=== PATIENT | female | born 1980 | race Caucasian/White ===

== ENCOUNTER 2020-02-03 09:50 | Outpatient (REF) | payer MEDICAID, SELFPAY ==
[2020-02-08 09:56] LABS: HPV mRNA E6/E7 Not Detected (Not Detected)
== END 2020-02-03 09:51 | disposition home or self-care (01) ==
LOC: HO.LAB 09:50
PROVIDERS: Visit Provider Advanced Practice Midwife
DX: Z01.419 Encounter for gynecological examination (general) (routine) without abnormal findings (principal); Z87.42 Personal history of other diseases of the female genital tract
CPT/HCPCS: 87624; 87625; 88142

== ENCOUNTER 2020-02-19 08:40 | Outpatient (REF) | payer MEDICAID, SELFPAY ==
--- NOTE | 2020-02-19 08:43 | MM_ITS ---
EXAMINATION: MM SCREENING DIGITAL BREAST TOMOSYNTHESIS, BILATERAL CLINICAL INFORMATION: Screening. Asymptomatic. The lifetime risk of breast cancer based on the Tyrer-Cuzick Model is 8.7%. COMPARISON: Mammography: None TECHNIQUE: Digital breast tomosynthesis is performed in both the craniocaudal and mediolateral oblique views along with computer-aided detection (CAD). Synthesized 2D images are generated from the tomosynthesis. FINDINGS: The breasts are heterogeneously dense, which may obscure small masses (ACR BI-RADS breast composition Category c). There are no significant masses, abnormal calcifications, or other abnormalities. MM/MM tomosynthesis screening BI IMPRESSION: No mammographic evidence to suggest malignancy. ASSESSMENT: BI-RADS 1: Negative RECOMMENDATION: Routine annual mammography screening. This patient's information was entered into a reminder system with a target due date for their next mammogram.
== END 2020-02-19 08:41 | disposition home or self-care (01) ==
LOC: HO.MAMMO 08:40
PROVIDERS: PCP Internal Medicine; Visit Provider Advanced Practice Midwife
DX: Z12.31 Encounter for screening mammogram for malignant neoplasm of breast (principal)
CPT/HCPCS: 77063; 77067

== ENCOUNTER 2020-11-23 13:54 | Outpatient (REF) | payer MEDICAID, SELFPAY ==
--- NOTE | ~2020-11-23 | US_ITS ---
EXAMINATION: US SCREENING ULTRASOUND BREAST, BILATERAL CLINICAL INFORMATION: Dense breasts on mammography. Screening ultrasound. Tyrer-Cuzick Score 9%. COMPARISON: Baseline digital breast tomosynthesis 02/19/2020 TECHNIQUE: Ultrasound is performed using grayscale imaging and color Doppler. Imaging is performed to include the four quadrants and retroareolar region. Both breasts are imaged. FINDINGS: Right breast: There is no suspicious finding by ultrasound. There is no cystic or solid mass or focal architectural abnormality. Left breast: There is no suspicious finding by ultrasound. There is no cystic or solid mass or focal architectural abnormality. US/US breast RT complete IMPRESSION: Normal study. ASSESSMENT: BI-RADS 1: Negative RECOMMENDATION: Routine annual mammography screening. This patient's information was entered into a reminder system with a target due date for their next mammogram.
--- NOTE | ~2020-11-23 | US_ITS ---
EXAMINATION: US SCREENING ULTRASOUND BREAST, BILATERAL CLINICAL INFORMATION: Dense breasts on mammography. Screening ultrasound. Tyrer-Cuzick Score 9%. COMPARISON: Baseline digital breast tomosynthesis 02/19/2020 TECHNIQUE: Ultrasound is performed using grayscale imaging and color Doppler. Imaging is performed to include the four quadrants and retroareolar region. Both breasts are imaged. FINDINGS: Right breast: There is no suspicious finding by ultrasound. There is no cystic or solid mass or focal architectural abnormality. Left breast: There is no suspicious finding by ultrasound. There is no cystic or solid mass or focal architectural abnormality. US/US breast LT complete IMPRESSION: Normal study. ASSESSMENT: BI-RADS 1: Negative RECOMMENDATION: Routine annual mammography screening. This patient's information was entered into a reminder system with a target due date for their next mammogram.
== END 2020-11-23 13:55 | disposition home or self-care (01) ==
LOC: HO.MAMMO 13:54
PROVIDERS: Visit Provider Internal Medicine
DX: R92.2 Inconclusive mammogram (principal)
CPT/HCPCS: 76641

== ENCOUNTER → 2021-03-07 10:24 | Outpatient (BNVA) | payer MEDICAID, SELFPAY | PROVIDERS: Visit Provider Advanced Practice Midwife ==

== ENCOUNTER 2021-04-10 14:47 | Outpatient (REF) | payer MEDICAID, SELFPAY ==
--- NOTE | ~2021-04-10 | US_ITS ---
EXAMINATION: US PELVIS CLINICAL INFORMATION: Excessive premenopausal bleeding COMPARISON: None TECHNIQUE: Ultrasound of the pelvis is performed using both transabdominal and transvaginal transducers along with Doppler. Transvaginal imaging is performed due to inadequate visualization transabdominally. FINDINGS: Uterus: The uterus is retroverted and measures 9.1 x 6.8 x 7.3 cm. The double wall endometrial thickness is 18 mm. The uterus is smooth in contour and has normal myometrial echogenicity. There is a 5.0 x 4.5 x 5.0 cm anterior fibroid. Adnexa: Both ovaries are visualized. There is normal color flow to the adnexa. There is no ovarian torsion. There is no pelvic ascites or fluid collection. Right ovary measures 3.1 x 2.1 x 2.2 cm. Left ovary measures 3.2 x 1.9 x 2.6 cm. US/US pelvic and transvaginal IMPRESSION: 5.0 cm anterior fibroid. Otherwise unremarkable pelvic ultrasound.
== END 2021-04-10 14:48 | disposition home or self-care (01) ==
LOC: HO.US 14:47
PROVIDERS: PCP Internal Medicine; Visit Provider Advanced Practice Midwife
DX: N92.4 Excessive bleeding in the premenopausal period (principal); D64.9 Anemia, unspecified
CPT/HCPCS: 76830; 76856

== ENCOUNTER → 2021-04-19 15:18 | Outpatient (BNVA) | payer MEDICAID, SELFPAY | PROVIDERS: Visit Provider Advanced Practice Midwife ==

== ENCOUNTER → 2021-04-24 14:35 | Outpatient (BNVA) | payer MEDICAID, SELFPAY | PROVIDERS: Visit Provider Obstetrics & Gynecology ==

== ENCOUNTER 2021-05-01 09:46 | Outpatient (REF) | payer MEDICAID, SELFPAY ==
[2021-05-01 10:16] LABS: Hematocrit 39.5 % (37.0-47.0); Mean Corpuscular HGB Conc 32.9 g/dl (31.0-35.0); Mean Corpuscular Hemoglobin 30.4 pg (27.0-33.0); Mean Corpuscular Volume 92.3 fL (80.0-98.0); Mean Platelet Volume 10.2 fL (9.4-12.3); Platelet Count 235 X10*3/uL (160-400); Red Blood Count 4.28 X10*6/uL (4.20-5.50); Red Cell Distribution Width 12.8 % (11.0-16.0); White Blood Count 5.2 X10*3/uL (4.8-10.8)
[2021-05-01 11:01] LABS: HCG Quantitative < 2 mIU/mL; TSH reflex Free T4 1.53 uIU/mL (0.32-4.0)
== END 2021-05-01 09:47 | disposition home or self-care (01) ==
LOC: HO.LAB 09:46
PROVIDERS: PCP Internal Medicine; Visit Provider Obstetrics & Gynecology
DX: N93.9 Abnormal uterine and vaginal bleeding, unspecified (principal)
CPT/HCPCS: 36415; 84443; 84702; 85027

== ENCOUNTER 2021-05-10 08:39 | Outpatient (REF) | payer MEDICAID, SELFPAY ==
[2021-05-10 16:14] LABS: CT PCR NOT DETECTED (Not Detect.); NG PCR NOT DETECTED (Not Detect.)
== END 2021-05-10 08:40 | disposition home or self-care (01) ==
LOC: HO.LAB 08:39
PROVIDERS: PCP Internal Medicine; Visit Provider Obstetrics & Gynecology
DX: Z01.419 Encounter for gynecological examination (general) (routine) without abnormal findings (principal); N93.9 Abnormal uterine and vaginal bleeding, unspecified; D21.9 Benign neoplasm of connective and other soft tissue, unspecified
CPT/HCPCS: 58100; 87491; 87591; 88305; 99212

== ENCOUNTER → 2021-05-24 11:48 | Outpatient (BNVA) | payer MEDICAID, SELFPAY | PROVIDERS: Visit Provider Obstetrics & Gynecology ==

== ENCOUNTER 2021-06-09 09:14 | Outpatient (REF) | payer MEDICAID, SELFPAY ==
--- NOTE | ~2021-06-09 | MM_ITS ---
EXAMINATION: MM SCREENING DIGITAL BREAST TOMOSYNTHESIS, BILATERAL CLINICAL INFORMATION: Screening. Asymptomatic. The lifetime risk of breast cancer based on the Tyrer-Cuzick Model is 9%. COMPARISON: Mammography: 02/19/2020 (baseline). TECHNIQUE: Digital breast tomosynthesis is performed in both the craniocaudal and mediolateral oblique views along with computer-aided detection (CAD). Synthesized 2D images are generated from the tomosynthesis. Additional left CC view is provided. FINDINGS: The breasts are heterogeneously dense, which may obscure small masses (ACR BI-RADS breast composition Category c). There are no significant masses, abnormal calcifications, or other abnormalities. Parenchymal pattern is similar to prior baseline exam. There are no significant changes. MM/MM tomosynthesis screening BI IMPRESSION: No mammographic evidence of malignancy. ASSESSMENT: BI-RADS 1: Negative RECOMMENDATION: Routine annual mammography screening. This patient's information was entered into a reminder system with a target due date for their next mammogram.
== END 2021-06-09 09:15 | disposition home or self-care (01) ==
LOC: HO.MAMMO 09:14
PROVIDERS: PCP Internal Medicine; Visit Provider Obstetrics & Gynecology
DX: Z12.31 Encounter for screening mammogram for malignant neoplasm of breast (principal)
CPT/HCPCS: 77063; 77067

== ENCOUNTER → 2021-06-26 08:53 | Outpatient (BNVA) | payer MEDICAID, SELFPAY | PROVIDERS: PCP Internal Medicine; Visit Provider Obstetrics & Gynecology | DX: N93.9 Abnormal uterine and vaginal bleeding, unspecified (principal) | CPT/HCPCS: 58300 ==

== ENCOUNTER → 2021-07-27 08:53 | Outpatient (BNVA) | payer MEDICAID, SELFPAY | PROVIDERS: Visit Provider Obstetrics & Gynecology | DX: Z30.431 Encounter for routine checking of intrauterine contraceptive device (principal) | CPT/HCPCS: 81025; 99212 ==

== ENCOUNTER 2021-11-27 10:44 | Outpatient (REF) | payer MEDICAID, SELFPAY ==
--- NOTE | ~2021-11-27 | US_ITS ---
EXAMINATION: US PELVIS CLINICAL INFORMATION: Abnormal uterine and vaginal bleeding. COMPARISON: Pelvic ultrasound from 04/10/2021. TECHNIQUE: Ultrasound of the pelvis is performed using both transabdominal and transvaginal transducers along with Doppler. Transvaginal imaging is performed due to inadequate visualization transabdominally. FINDINGS: UTERUS AND CERVIX The anteflexed, anteverted uterus measures approximately 9.5 x 5.2 x 7 cm (gumcty-lg-pydxgv x AP x transverse dimension). The endometrium has normal echotexture, measures up to 0.7 cm AP. There is distal shadowing produced by the contraceptive device which is well centered in the endometrium. No endometrial fluid. There are nabothian cysts of the cervix. A heterogeneous focus that measures up to approximately 5 cm maximum dimension at the uterine fundus is consistent with leiomyoma and is not appreciably changed compared to 04/10/2021. There is no visible submucosal extension of the leiomyoma. ADNEXA: The right ovary is 3.5 x 1.5 x 1.9 cm and left ovary 5.3 x 3.4 x 4.6 cm. The left ovary is enlarged due to presence of a 3.5 cm simple cyst. This is almost certainly benign. No follow-up imaging is recommended, if asymptomatic. Color Doppler images with spectral waveforms show presence of normal arterial and venous flow within each ovary. FREE FLUID: None detected. US/US pelvic and transvaginal IMPRESSION: * The fundal leiomyoma remains similar in appearance compared to 04/10/2021. * The contraceptive device is well centered within the endometrium. * 3.5 cm simple cyst of the left ovary. Otherwise, the adnexa are unremarkable.
== END 2021-11-27 10:45 | disposition home or self-care (01) ==
LOC: HO.US 10:44
PROVIDERS: Visit Provider Obstetrics & Gynecology
DX: N93.9 Abnormal uterine and vaginal bleeding, unspecified (principal); D21.9 Benign neoplasm of connective and other soft tissue, unspecified
CPT/HCPCS: 76830; 76856

== ENCOUNTER → 2021-12-04 10:25 | Outpatient (BNVA) | payer MEDICAID, SELFPAY | PROVIDERS: PCP Internal Medicine; Visit Provider Obstetrics & Gynecology | DX: D21.9 Benign neoplasm of connective and other soft tissue, unspecified (principal); N93.9 Abnormal uterine and vaginal bleeding, unspecified | CPT/HCPCS: 99212 ==

== ENCOUNTER → 2022-05-02 08:50 | Outpatient (BNVA) | payer MEDICAID, SELFPAY | PROVIDERS: PCP Internal Medicine; Visit Provider Obstetrics & Gynecology | DX: N63.22 Unspecified lump in the left breast, upper inner quadrant (principal) | CPT/HCPCS: 99212 ==

== ENCOUNTER 2022-05-14 13:48 | Outpatient (REF) | payer MEDICAID, SELFPAY ==
--- NOTE | ~2022-05-14 | MM_ITS ---
EXAMINATION: MM DIAGNOSTIC DIGITAL BREAST TOMOSYNTHESIS, BILATERAL US DIAGNOSTIC ULTRASOUND BREAST, LEFT CLINICAL INFORMATION: Palpable nodule upper periareolar left breast 10:00-11:00 for approximately 6 months. Due for yearly. No known family history breast cancer. TC score 8%. COMPARISON: Mammography: 06/09/2021, 02/19/2020 (baseline), bilateral ultrasound 11/23/2020. TECHNIQUE: Digital breast tomosynthesis is performed in both the craniocaudal and mediolateral oblique views along with computer-aided detection (CAD). Synthesized 2D images are generated from the tomosynthesis. Ultrasound left breast is targeted to the area of clinical concern. Patient is able to point to the area at time of imaging. Grayscale imaging and color Doppler are performed without and with harmonics. FINDINGS: The breasts are heterogeneously dense, which may obscure small masses (ACR BI-RADS breast composition Category c). There are no significant masses, abnormal calcifications, or other abnormalities. Parenchymal pattern is similar to prior studies. There is no developing density or architectural abnormality. The axilla and skin contours are unremarkable. No significant changes. Ultrasound demonstrates a simple cyst at site of clinical concern 5 mm in size with circumscribed margins, anechoic lumen, and increased through-transmission of sound. This resides approximately 10:00-11:00 periareolar region. There is no solid mass or architectural abnormality or focal duct ectasia. Results are discussed with the patient at time of visit. MM/MM tomosynthesis diagnostic BI IMPRESSION: 1. No mammographic evidence of malignancy. 2. Simple cyst periareolar left breast at site of clinical concern 5 mm. ASSESSMENT: BI-RADS 2: Benign RECOMMENDATION: Routine annual mammography screening. This patient's information was entered into a reminder system with a target due date for their next mammogram.
== END 2022-05-14 13:49 | disposition home or self-care (01) ==
LOC: HO.MAMMO 13:48
PROVIDERS: Visit Provider Obstetrics & Gynecology
DX: N63.22 Unspecified lump in the left breast, upper inner quadrant (principal)
CPT/HCPCS: 76642; 77062; 77066

== ENCOUNTER 2022-05-16 09:29 | Outpatient (REF) | payer MEDICAID, SELFPAY ==
[2022-05-22 10:08] LABS: HPV 16 RNA NOT DETECTED (NOT DETECTED); HPV mRNA E6/E7 rflx Detected (Not Detected)
== END 2022-05-16 09:30 | disposition home or self-care (01) ==
LOC: HO.LNP 09:29
PROVIDERS: Visit Provider Obstetrics & Gynecology
DX: Z01.419 Encounter for gynecological examination (general) (routine) without abnormal findings (principal); N60.09 Solitary cyst of unspecified breast
CPT/HCPCS: 87624; 87625; 88142

== ENCOUNTER 2022-06-26 09:01 | Outpatient (REF) | payer MEDICAID, SELFPAY | END 2022-06-26 09:02 | disposition home or self-care (01) | LOC: HO.LNP 09:01 | PROVIDERS: Visit Provider Obstetrics & Gynecology | DX: R87.810 Cervical high risk human papillomavirus (HPV) DNA test positive (principal); R87.610 Atypical squamous cells of undetermined significance on cytologic smear of cervix (ASC-US) | CPT/HCPCS: 57454; 88300; 88305; 88342; 88360 ==

== ENCOUNTER → 2022-07-04 08:04 | Outpatient (BNVA) | payer MEDICAID, SELFPAY | PROVIDERS: Visit Provider Obstetrics & Gynecology | DX: N87.1 Moderate cervical dysplasia (principal) | CPT/HCPCS: 99212 ==

== ENCOUNTER 2022-07-06 10:59 | Day surgery (SDC) | payer MEDICAID, SELFPAY ==
[2022-07-06] VITALS (7 sets, daily range): BP systolic 121–147; BP diastolic 68–98; PULSE 69–85; RESP 16–20; TEMP 36.6–36.7; O2SAT 99–100; BMI 24.5; BMI 24.3
[2022-07-06 11:31] LABS: UPreg QC Valid YES; Urine Pregnancy NEGATIVE (NEGATIVE)
[2022-07-06] MEDS: Lactated Ringers 1,000 ML 50 ML IVCONT (12:01)
--- NOTE | 2022-07-06 12:23 | MHC.SHP ---
Pre-Procedural Eval Section A Date of Service: 07/06/22 The patient is an INPATIENT: No Changes since office visit: No Cold of Flu in the past 2 weeks, No New Medical Problems, No Changes in Medication and No Patient answered all questions The History & Physical has been completed within 30 days and I have reviewed it.: Yes Section B Chief Complaint: Moderate cervical dysplasia Allergies: Allergies Allergy/AdvReac Type Severity Reaction Status Date / Time No Known Allergies Allergy Verified 07/06/22 11:47 Plan Diagnosis/Plan: Unchanged I have reviewed the history and physical and performed a pertinent physical examination on my patient. No changes have occurred unless specified. Time Spent With Patient Time: Total time managing care of this patient today ____ minutes.
--- NOTE | 2022-07-06 12:27 | HO.ANESPROP2 ---
[facility] Active Problems Active Problems: All Active Problems (Updated 07/06/22 @ 11:45 by Elyssa Graf, RN) Well woman exam with routine gynecological exam (Acute) History of abnormal cervical Pap smear (Acute) Menorrhagia, premenopausal (Acute) Fibroid uterus (Acute) Abnormal uterine bleeding (Acute) Myoma (Acute) Well woman exam (Acute) IUD check up (Acute) Breast lump (Acute) Breast cyst (Acute) ASCUS with positive high risk HPV cervical (Acute) ELMA II (cervical intraepithelial neoplasia II) (Acute) Anemia (Acute) Past Medical History Medical History (Updated 07/06/22 @ 11:45 by Elyssa Graf, RN) Anemia ASCUS (atypical squamous cells of undetermined significance) on gynecologic Papanicolaou smear complicating , antepartum Elevated cholesterol Lower back pain Family History Family History Mother Liver cancer Lung cancer HTN (hypertension) Paternal Grandfather Stomach cancer Family history of problems with anesthesia: No Surgical History Surgical History H/O LEEP Hx of nasal polypectomy History of Problems with Anesthesia: No Social History Social History Household Members: Spouse Housing: House Alcohol intake: current Alcohol intake frequency: holidays/special occasions only Patient Tobacco Use Status: Never used Tobacco Use of substances other than those prescribed or required for medical reasons: No Substance Use Type: Marijuana Are you DNR?: No Advance Directives: No Advance Directives Information Provided: Yes service: No Current occupational status: unemployed Sexual orientation: Straight/Heterosexual Gender identity: Female Meds Allergies Allergy/AdvReac Type Severity Reaction Status Date / Time No Known Allergies Allergy Verified 07/06/22 11:47 Active Medications: Current Medications Lactated Ringer's (Lr) 1,000 mls @ 50 mls/hr IVCONT .Q20H ZACARIAS Last Admin: 07/06/22 12:01 Dose: 50 mls/hr Home Medications Medication Instructions Recorded Confirmed Last Taken Type fluticasone propionate 50 1 spray intranasal DAILY 02/03/20 07/06/22 06/29/22 History mcg/actuation nasal spray,suspension (Allergy Relief (fluticasone)) multivitamin (Daily Multi-Vitamin 1 tab PO DAILY 03/07/21 07/06/22 07/03/22 History tablet) rosuvastatin 5 mg tablet 5 mg PO DAILY 03/07/21 07/06/22 07/05/22 20:00 History levonorgestrel 21 mcg/24 hours (8 1 device intrauterine ONCE 07/27/21 07/06/22 Unknown History yrs) 52 mg intrauterine device (Mirena) albuterol sulfate 90 mcg/actuation 2 puff inhalation Q4-6H PRN 07/06/22 07/06/22 Unknown History aerosol inhaler Allergy Symptoms Exam Exam Date and Time: July 06, 2022 1227 Height,Weight and Vital Signs: Height 5 ft 6 in Weight 68.492 kg Last Vital Signs Temp 97.9 F 07/06/22 11:48 Pulse 69 07/06/22 11:48 Resp 16 07/06/22 11:48 BP 147/98 H 07/06/22 11:48 Pulse Ox 100 07/06/22 11:48 O2 Del Method Room Air 07/06/22 11:48 Pertinent Lab Results Pertinent Lab Results: Laboratory Tests 07/06/22 11:20 Urine Test NEGATIVE Airway Mallampati Class: II TM Dist: >3cm Neck ROM: Full Assessment and Plan Assessment Anesthesia Assessment: Anesthesia Plan Discussed and Chart Reviewed Final Anesthetic Review Family History of Problems with Anesthesia: No History of Problems with Anesthesia: No NPO: Yes ASA Class: II Final Preanesthetic Review: No Changes in Pt Med Stat, Meds/Allgs Chart Reviewed, Consent Obtained/Reviewed and Anes Risks/Benef Reviewed Patient Risk: Low Procedure Risk: Low Anesthetic Plan Anesthetic Plan: GA Disposition: Standard PACU
--- NOTE | 2022-07-06 13:09 | P.BOP_ITS ---
Brief Operative Note Date of Service: 07/06/22 Pre-op diagnosis: ELMA 2 Post-op diagnosis: same Procedure: LEEP CONE with post CONE ECC IUD removal and Mirena IUD reinsertion Surgeon: Ben Andujar MD Anesthesia: GLMA and other (Paracervical block) Was an Manager New Product used for this Procedure?: No Estimated blood loss (mL): 0 Pathology: other (Cervical cone, top-hat, Post cone ECC) Condition: stable Disposition: other (Home)
--- NOTE | 2022-07-06 13:10 | W.PM.OPN ---
Operative Note Operative Note Date of Service: 07/06/22 Narrative: Pre op diagnosis: ELMA II Operation: Colposcopy, Loop electrical excision procedure cone, top hat endocervical excision, post cone ECC, IUD removal and Mirena IUD insertion Postop diagnosis: the same Quantitative blood loss: 50 cc Surgeon: Ben Andujar MD, FACOG [employer] Machine Operator: None Pathology: Cervical cone, top-hat endo cervical excision, endo cervical curettage Complications: none Anesthesia: GLMA and Para cervical block Procedure: The patient was put in a dorsal lithotomy position, scrubbed and draped in the usual sterile fashion. A speculum was inserted inside the patient's vagina. Using a long Saed clamp IUD was removed without any complications. The cervix is assessed using the colposcope with acetic acid , the lesions were seen, and at least 1 cm of the squamocolumnar junction was observed. 20 x 5 mm size loop was selected based upon the diameter of the lesion. Lugol solution was used to outline the lesions and area of the transformation zone order to be removed 10 cc of xylocaine with epinephrine were injected submucosally into the surface of the cervix (ectocervix) at the 3, 6, 9, and 12 o'clock positions. The electrosurgical generator is set at 40 martin on blend 1. The loop is carefully passed simultaneously around and under the transformation zone, in order to ensure excising it making sure the lesion is at least 5 mm far from the specimen margins . The loop was allowed to glide through the cervix from one side to the other, allowing the cutting current to divide the tissue. Additional tissue was excised from this area with a smaller-diameter loop , endo cervical top-hat excision was performed An endo cervical curettage is performed following completion of excision, and hemostasis is obtained with a Ball electrode or regular tip cautery. At the end, Monsel's solution was applied to the cone bed. A sound was then advanced through the external and internal os until it reached the fundus of the uterus, the depth was 8 cm. The sound was then withdrawn. The IUD was loaded in a sterile manner and advanced into position. The string was visualized and cut to 3 cm. Tenaculum site hemostatic. All instruments removed from vagina. Patient tolerated the procedure well. NO complications were noted. Monsel's solution was used bed of the loop. The patient tolerated to procedure and was transferred to the PACU in stable condition
== END 2022-07-06 14:20 | disposition home or self-care (01) ==
PROVIDERS: PCP Registered Nurse; Visit Provider Obstetrics & Gynecology
PROC: 0UBC7ZZ Excision of Cervix, Via Natural or Artificial Opening (ICD-10-PCS; CPT 57522; principal; 2022-07-06 13:30)
DX: N87.1 Moderate cervical dysplasia (principal); N72 Inflammatory disease of cervix uteri; Z30.433 Encounter for removal and reinsertion of intrauterine contraceptive device; D64.9 Anemia, unspecified; F12.90 Cannabis use, unspecified, uncomplicated; Z79.899 Other long term (current) drug therapy
CPT/HCPCS: 57461; 58300; 81025; 88305; 88307; J1100; J1885; J2250; J2405; J3010

== ENCOUNTER → 2022-07-31 08:12 | Outpatient (BNVA) | payer MEDICAID, SELFPAY | PROVIDERS: PCP Registered Nurse; Visit Provider Obstetrics & Gynecology | DX: Z30.431 Encounter for routine checking of intrauterine contraceptive device (principal); N87.1 Moderate cervical dysplasia | CPT/HCPCS: 81025; 99212 ==

== ENCOUNTER 2023-03-19 07:55 | Outpatient (REF) | payer MEDICAID, SELFPAY ==
[2023-03-23 04:33] LABS: HPV mRNA E6/E7 rflx Not Detected (Not Detected)
== END 2023-03-19 07:56 | disposition home or self-care (01) ==
LOC: HO.LNP 07:55
PROVIDERS: PCP Registered Nurse; Visit Provider Obstetrics & Gynecology
DX: Z01.419 Encounter for gynecological examination (general) (routine) without abnormal findings (principal); N87.1 Moderate cervical dysplasia; R87.810 Cervical high risk human papillomavirus (HPV) DNA test positive
CPT/HCPCS: 57454; 81025; 87624; 88142; 88305

== ENCOUNTER 2023-03-19 07:55 | Outpatient (AMB) | payer MEDICAID, SELFPAY ==
[2023-03-19 07:57] VITALS: BP 118/76; BMI 24.7
--- NOTE | 2023-03-19 07:57 | MHC.OFFVIS ---
Intake Vital Signs 03/19/23 07:57 Height 5 ft 6 in Weight 153 lb BMI 24.7 BP 118/76 Intake Visit Reasons: Colpo Escalator Attendant Required: No Information Interpreted: non-clinical & clinical Tuck Pointer: Tuck Pointer Present (Juliana PATTERSON) Accompanied by: Self / Same As Patient Allergies No Known Allergies Allergy (Verified 03/19/23 08:10) Is last menstrual period known: Yes Last menstrual period: 03/08/23 HPI HPI Comments History of Present Illness Details Presenting for 6 months co testing/colpo status post LEEP with negative pathology I after ascus/HPV in 06/07 colpo biopsy showed ELMA 2 in 07/05. [facility] Medical History Elevated cholesterol Anemia ASCUS (atypical squamous cells of undetermined significance) on gynecologic Papanicolaou smear complicating , antepartum Lower back pain Surgical History Hx of nasal polypectomy H/O LEEP Family History Mother Liver cancer Lung cancer HTN (hypertension) Paternal Grandfather Stomach cancer Social History Household Members: Spouse Housing: House Alcohol intake: current Alcohol intake frequency: holidays/special occasions only Patient Tobacco Use Status: Never used Tobacco Substance Use Type: Marijuana service: No Current occupational status: unemployed Sexual orientation: Straight/Heterosexual Gender identity: Female Female Reproductive History Menstrual Age of Menarche: 13 Date of last menstrual period: 03/08/23 Review of Systems Const All systems reviewed & are unremarkable except as noted in HPI and below Physical Exam Vital Signs: Last Vital Signs BP 118/76 03/19/23 07:57 BMI result Body Mass Index 24.7 General: Yes no CVA tenderness External Female Exam: normal external appearance and normal appearance of the urethra Speculum Exam - Vagina: normal appearance of the vagina, normal palpation, no lesions and no masses Speculum Exam - Cervix: normal appearance of the cervix, normal palpation, no lesions, no masses, nontender and Other cervical findings present (IUD string in place) Bimanual exam- vagina & uterus: normal bimanual exam, normal palpation, uterine size normal, normal palpation, uterine shape normal, No Cervical tenderness present and non-tender Bimanual Exam- Adnexa, other: normal adnexae Back/Spine/Pelvis Back: no CVA tenderness Office Procedures Colposcopy Before the procedure was started discussed with the patient the procedure, alternatives & all the risks associated with the procedure (bleeding, infection, injury to vagina, bladder, vessels, possible need for transfusion with all its risks) then patient signed the consent UPT done in the office & negative Pap ascus/HPV positive in 06/07, ELMA 2 on colpo biopsy/ECC in 07/05 followed by LEEP cone with post cone ECC negative pathology Speculum inserted, acetic acid used Colposcopy done Transformation zone seen, acetowhite lesions identified at 6+9 o?clock, cervical biopsies taken from 6+9 o?clock, ECC done afterwards. Vaginoscopy of the upper vagina showed no evidence of any aceto-white lesions Monsel solution used for hemostasis. The patient tolerated well . At the end the patient was instructed to call if temp>100.4, abdominal pain, n/v, bleeding; The patient was given the following instructions: nothing per vagina, no intercourse or bath tub use. All questions answered the patient verbalized understanding. Instructed the patient to make an appointment in 2 weeks for follow-up This note was generated with a voice recognition program. Some errors may have been overlooked during the review of this note. Sometimes these errors may affect the content or meaning of a given sentence. 98131-Vsqptiims of cervix including upper vagina with biopsy and ECC Procedure code (CPT) selection complete Results AMB Test Urine AMB Test Urine Negative Last Edit by Juliana Ramirez CMA on 03/19/23 08:12 Results Reviewed Results Reviewed: Laboratory Last Values Tst Clinic Negative 03/19/23 08:12 Assessment & Plan Assessment & Plan (1) ELMA II (cervical intraepithelial neoplasia II): Comment: Status post LEEP cone with post cone ECC in 07/05 with negative pathology Code(s): N87.1 - Moderate cervical dysplasia Plan: Co testing taken . colposcopy/ECC done, see procedure note Orders: Orders AMB Colposcopy Today N87.1 - Moderate cervical dysplasia AMB HCG Urine Test Today Z32.02 - Encounter for test, result negative Coding Level of Care Code Procedure Only Diagnoses ELMA II (cervical intraepithelial neoplasia II) N87.1 CPT Codes Colposcopy - CPT: 38344-Ejjhpxofi of cervix including upper vagina with biopsy and ECC ([id number])
== END 2023-03-19 08:49 | disposition home or self-care (01) ==
PROVIDERS: PCP Registered Nurse; Visit Provider Obstetrics & Gynecology
DX: N87.1 Moderate cervical dysplasia (principal); Z32.02 Encounter for pregnancy test, result negative
CPT/HCPCS: 57454

== ENCOUNTER 2023-05-24 11:05 | Outpatient (REF) | payer BC, SELFPAY | END 2023-05-24 11:06 | disposition home or self-care (01) | LOC: HO.MAMMO 11:05 | PROVIDERS: PCP Nurse Practitioner Family; Visit Provider Obstetrics & Gynecology | DX: Z12.31 Encounter for screening mammogram for malignant neoplasm of breast (principal) | CPT/HCPCS: 77063; 77067 ==

== ENCOUNTER → 2023-05-24 11:15 | Outpatient (BNV) | payer BC, SELFPAY | PROVIDERS: PCP Nurse Practitioner Family; Visit Provider Radiology Diagnostic Radiology | DX: Z12.31 Encounter for screening mammogram for malignant neoplasm of breast (principal) | CPT/HCPCS: 77063; 77067 ==

== ENCOUNTER 2023-06-25 08:23 | Outpatient (AMB) | payer SELFPAY ==
[2023-06-25 08:25] VITALS: BP 108/64; BMI 25.2
--- NOTE | 2023-06-25 08:25 | MHC.OFFVIS ---
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 No complaints. Last Pap/HPV was in 04/06 was negative, colpo/biopsy/ECC negative Last Mammogram was BI-RADS 1 in 06/08 [facility] Medical History (Updated 06/25/23 @ 08:34 by Ben Andujar MD) Elevated cholesterol Anemia ASCUS (atypical squamous cells of undetermined significance) on gynecologic Papanicolaou smear complicating , antepartum Lower back pain Surgical History Hx of nasal polypectomy H/O LEEP Family History Mother Liver cancer Lung cancer HTN (hypertension) Paternal Grandfather Stomach cancer Social History Household Members: Spouse Housing: House Alcohol intake: current Alcohol intake frequency: holidays/special occasions only Patient Tobacco Use Status: Never used Tobacco Substance Use Type: Marijuana service: No Current occupational status: unemployed Sexual orientation: Straight/Heterosexual Gender identity: Female Female Reproductive History Menstrual Age of Menarche: 13 control method: progestin IUCD Total pregnancies: 1 Full term: 1 Number of Living Children: 1 Date of last pap smear: 03/20/23 Date of Mammogram: 05/24/23 Review of Systems Const All systems reviewed & are unremarkable except as noted in HPI and below Card Reports as per HPI Resp Reports as per HPI GI Reports as per HPI and Reports no additional complaints Reports as per HPI Physical Exam Vital Signs: BMI result Body Mass Index 25.2 Const General: cooperative, healthy appearing and comfortable Chest Chest palpation & inspection: normal inspection of the chest and normal palpation of entire chest wall Breast/axilla inspection: normal inspection of the breasts and normal inspection of the axillae Breast/axilla palpation: normal palpation of the breasts, normal palpation of the axillae and no axillary lymphadenopathy Resp Effort & Inspection: normal respiratory effort Auscultation: clear to auscultation bilaterally Percussion: percussion normal Cardio Palpation: normal PMI Rate: regular rate Rhythm: regular rhythm Heart sounds: no murmurs and no rubs Peripheral pulses: Peripheral pulses 2+ throughout GI Inspection: Yes normal to inspection Palpation (GI): Soft to palpation, nontender, no guarding, not rigid and No hepatosplenomegaly present Percussion: Yes normal to percussion Auscultation: normal bowel sounds Rectal Exam - Female: deferred General: Yes bladder normal to palpation External Female Exam: No lesion Speculum Exam - Vagina: normal appearance of the vagina, normal palpation, normal vaginal discharge and not erythematous Speculum Exam - Cervix: normal appearance of the cervix and normal palpation Bimanual exam- vagina & uterus: normal bimanual exam, normal palpation, uterine size normal, bladder normal to palpation, consistency normal and normal palpation Bimanual Exam- Adnexa, other: normal adnexae, no masses and no tenderness Assessment & Plan Assessment & Plan (1) Well woman exam with routine gynecological exam: Code(s): Z01.419 - Encounter for gynecological examination (general) (routine) without abnormal findings Plan: Cotesting not indicated today. Co testing recommended Q year for 3 years and Q 3 years for 25 years, starting in a year Instructions given the patient to schedule next screen Mammogram in 06/09. Counseled the patient about the recommended dietary allowance of 1000 mg of Calcium & 600 IU of vitamin D. The patient was instructed to perform monthly self-breast exams and to schedule an annual exam in a year; All questions answered and the patient verbalized understanding. Instructed the patient to schedule annual exam in a year Coding Level of Care Code Est Pt Prev Care 40-64y(32079) Diagnoses Well woman exam with routine gynecological exam Z01.419
== END 2023-06-25 11:46 | disposition home or self-care (01) ==
PROVIDERS: PCP Nurse Practitioner Family; Visit Provider Obstetrics & Gynecology
DX: Z01.419 Encounter for gynecological examination (general) (routine) without abnormal findings (principal)
CPT/HCPCS: 99396

== ENCOUNTER → 2023-06-25 08:23 | Outpatient (BNVA) | payer OTHER, SELFPAY | PROVIDERS: Visit Provider Obstetrics & Gynecology | DX: Z01.419 Encounter for gynecological examination (general) (routine) without abnormal findings (principal) | CPT/HCPCS: 99396 ==

== ENCOUNTER 2023-07-26 10:52 | Outpatient (REF) | payer OTHER, SELFPAY ==
[2023-07-26 12:56] LABS: Alanine Aminotransferase 14 U/L (0-31); Albumin Level 4.2 g/dL (3.5-5.0); Alkaline Phosphatase 68 U/L (39-117); Anion Gap 11 (12-20); Aspartate Amino Transferase 15 U/L (5-31); Bilirubin Total 0.7 mg/dL (0.0-1.0); Blood Urea Nitrogen 11 mg/dL (9-16); Carbon Dioxide 24 mmol/L (22-29); Chloride 107 mmol/L (96-108); Cholesterol 150 mg/dL (<200); Estimated Glomerular Filt Rate > 60; Glucose Random 73 mg/dL (60-115); HDL Cholesterol 49 mg/dL (>40); LDL Cholesterol Calculated 85 mg/dL (<100); Potassium 3.7 mmol/L (3.3-5.1); Sodium 138 mmol/L (135-145); Total Protein 7.6 g/dL (6.5-8.0); Triglycerides 80 mg/dL (<150); Vitamin D 25-OH Total 24.8 ng/mL (>30)
[2023-07-26 14:16] LABS: CT PCR NOT DETECTED (Not Detect.); NG PCR NOT DETECTED (Not Detect.)
[2023-07-27 04:10] LABS: ~HepC Num1 0.14 S/CO (0.00-0.79); ~Hepatitis C Antibody Nonreactive (Nonreactive)
[2023-07-29 11:53] LABS: RPR Rapid Plasma Reagin NON-REACTIVE (NON-REACTIVE)
[2023-07-30 16:22] LABS: HIV RNA PCR Qn Copies Not Detected Copies/mL; HIV RNA PCR Qn Log Copies Not Detected Log cps/mL
== END 2023-07-26 10:53 | disposition home or self-care (01) ==
LOC: HO.HHCL 10:52
PROVIDERS: Visit Provider Nurse Practitioner Family
DX: Z00.00 Encounter for general adult medical examination without abnormal findings (principal); Z11.4 Encounter for screening for human immunodeficiency virus [HIV]; E55.9 Vitamin D deficiency, unspecified; E78.2 Mixed hyperlipidemia
CPT/HCPCS: 0353U; 36415; 80053; 80061; 82306; 86592; 86803; 87536; 87900

== ENCOUNTER 2024-01-28 12:13 | Outpatient (AMB) | payer BC, SELFPAY ==
--- NOTE | 2024-01-28 12:41 | A.OFFVIS_ITS ---
Vital Signs 01/28/24 12:41 Height 5 ft 6 in Intake Visit Reasons: pelvic pain Allergies No Known Allergies Allergy (Verified 06/25/23 08:29) HPI Comments Details: The patient is presenting with right-sided LQ pain started 1-2 months ago. It's intermittent in nature lasting few seconds and occurs 3x/day. it is not associated with constipation, dysuria, frequency incontinence, no n/v, no feverishness, no vaginal discharge. [facility] Medical History Elevated cholesterol Anemia ASCUS (atypical squamous cells of undetermined significance) on gynecologic Papanicolaou smear complicating , antepartum Lower back pain Surgical History Hx of nasal polypectomy H/O LEEP Family History Mother Liver cancer Lung cancer HTN (hypertension) Paternal Grandfather Stomach cancer Social History Household Members: Spouse Housing: House Alcohol intake: current Alcohol intake frequency: holidays/special occasions only Patient Tobacco Use Status: Never used Tobacco Substance Use Type: Marijuana service: No Current occupational status: unemployed Sexual orientation: Straight/Heterosexual Gender identity: Female Female Reproductive History Menstrual Age of Menarche: 13 Review of Systems Const All systems reviewed & are unremarkable except as noted in HPI and below Physical Exam General: Yes no CVA tenderness External Female Exam: normal external appearance and normal appearance of the urethra Speculum Exam - Vagina: normal appearance of the vagina, normal palpation, no lesions and no masses Speculum Exam - Cervix: normal appearance of the cervix, normal palpation, no lesions, no masses and nontender Bimanual exam- vagina & uterus: normal bimanual exam, normal palpation, uterine size normal, normal palpation, uterine shape normal, No Cervical tenderness present and non-tender Bimanual Exam- Adnexa, other: normal adnexae Back/Spine/Pelvis Back: no CVA tenderness Results AMB Test Urine AMB Test Urine Negative Last Edit by Juliana Ramirez CMA on 12:52 AMB Urinalysis Dipstick UR Leukocytes Negative Last Edit by Juliana Ramirez CMA on 01/28/24 12:53 UR Nitrite Negative Last Edit by Juliana Ramirez, ACADEMIC COMPUTING DIRECTOR on 01/28/24 12:53 UR Urobilinogen Normal Last Edit by Juliana Ramirez, ACADEMIC COMPUTING DIRECTOR on 01/28/24 12:53 UR Protein Negative Last Edit by Juliana Ramirez, ACADEMIC COMPUTING DIRECTOR on 01/28/24 12:53 UR Ph 6.5 Last Edit by Juliana Ramirez, ACADEMIC COMPUTING DIRECTOR on 01/28/24 12:53 UR Blood Negative Last Edit by Juliana Ramirez, ACADEMIC COMPUTING DIRECTOR on 01/28/24 12:53 UR Specific [place] 1.010 Last Edit by Juliana Ramirez, ACADEMIC COMPUTING DIRECTOR on 01/28/24 12:53 UR Ketone Negative Last Edit by Juliana Ramirez, ACADEMIC COMPUTING DIRECTOR on 01/28/24 12:53 UR Bilirubin Negative Last Edit by Juliana Ramirez, ACADEMIC COMPUTING DIRECTOR on 01/28/24 12:53 UR Glucose Negative Last Edit by Juliana Ramirez, ACADEMIC COMPUTING DIRECTOR on 01/28/24 12:53 Results Reviewed Results Reviewed: Laboratory Last Values Urine pH (Clinic) 6.5 01/28/24 12:52 Specific [place] (Clinic) 1.010 01/28/24 12:52 Ur Protein (Clinic) Negative 01/28/24 12:52 Ur Ketones (Clinic) Negative 01/28/24 12:52 Urine Blood (Clinic) Negative 01/28/24 12:52 Urine Nitrite Negative 01/28/24 12:52 Urine Bilirubin (Clinic) Negative 01/28/24 12:52 Urobilinogen (Clinic) Normal 01/28/24 12:52 Leukocyte Esterase (Clinic) Negative 01/28/24 12:52 Urine Glucose (Clinic) Negative 01/28/24 12:52 Tst Clinic Negative 01/28/24 12:52 Assessment & Plan Assessment & Plan (1) Pelvic pain: Code(s): R10.2 - Pelvic and perineal pain Category: Medical Plan: Urine dip and test done in the office were both negative. GC and chlamydia taken and pelvic ultrasound ordered. Discussed with the patient the differential diagnosis of pelvic pain including but not limited to IUD complications, adnexal, uterine masses, pelvic infections (PID), GI the (Irritable bowel syndrome, diverticulitis, others), musculoskeletal, myofascial pain abdominal wall , adhesions, endometriosis, psychological and others causes. Will check results and treat accordingly. All questions answered, the patient verbalized understanding. Instructed the patient to schedule follow-up appointment in 2 weeks (2) IUD strings lost: Code(s): T83.32XA - Displacement of intrauterine contraceptive device, initial encounter Category: Medical Plan: Pelvic ultrasound ordered, instructions given the patient to schedule an ultrasound follow-up appointment within 2 weeks Orders: Orders AMB HCG Urine Test Today Z32.02 - Encounter for test, result negative AMB Urinalysis Dipstick Today Z32.02 - Encounter for test, result negative CT NG by PCR Today R10.2 - Pelvic and perineal pain US pelvic and transvaginal Today R10.2 - Pelvic and perineal pain, T83.32XA - Displacement of intrauterine contraceptive device, initial encounter Coding Level of Care Code Est Pt Level 3 (05321) Diagnoses Pelvic pain R10.2 IUD strings lost T83.32XA
== END 2024-01-28 13:50 | disposition home or self-care (01) ==
LOC: HO.HWS 12:13
PROVIDERS: PCP Nurse Practitioner Family; Visit Provider Obstetrics & Gynecology
DX: R10.2 Pelvic and perineal pain (principal); T83.32XA Displacement of intrauterine contraceptive device, initial encounter; Z32.02 Encounter for pregnancy test, result negative
CPT/HCPCS: 99213

== ENCOUNTER 2024-02-18 10:45 | Outpatient (REF) | payer BC, SELFPAY ==
--- NOTE | ~2024-02-18 | US_ITS ---
EXAMINATION: US PELVIS CLINICAL INFORMATION: Pelvic and perineal pain. COMPARISON: Pelvic ultrasound 11/27/2021, 04/10/2021. TECHNIQUE: Ultrasound of the pelvis is performed using both transabdominal and transvaginal transducers along with Doppler. Transvaginal imaging is performed due to inadequate visualization transabdominally. 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 FINDINGS: Uterus: The uterus is anteverted and anteflexed and measures 9.9 x 4.9 x 1.3 cm. Estimated volume = 185 mL. The cervix has a normal appearance. The double wall endometrial thickness is poorly delineated due to the presence of an IUD. No thickening. There are 2 myometrial uterine fibroids in the right paramedian fundus, slightly smaller, which were previously measured as a solitary fibroid. The more superior fibroid currently measures 2.5 x 2.6 x 3.2 cm, and the more inferior fibroid measures 2.2 x 2.0 x 1.9 cm. (Previously both were measured at 5.4 x 4.9 x 5.3 cm, currently approximately 4.7 x 4.6 x 5.1 cm). Adnexa: Both ovaries are visualized. There is normal color flow to the adnexa. There is no ovarian torsion. There is no pelvic ascites or fluid collection. No adnexal masses. Right ovary measures 3.6 x 1.6 x 2.1 cm. Volume = 6.3 mL. It is sonographically normal. There is a dominant follicular cyst measuring 1.9 cm. Left ovary measures 3.1 x 1.3 x 1.6 cm. Volume = 3.4 mL. It is sonographically normal. There is a 1.1 cm dominant follicular cyst. US/US pelvic and transvaginal IMPRESSION: 1. There are 2 fundal fibroids just the right of midline, slightly smaller when compared with the previous exam. The larger measures up to 2.6 cm and the smaller measures up to 2.2 cm. 2. IUD within the endometrium without endometrial thickening. 3. Normal ovaries bilaterally. No adnexal masses. Electronically signed by: Luis Alfredo Mcdonnell MD 03/24/2024 12:41 PM [facility]
== END 2024-02-18 10:46 | disposition home or self-care (01) ==
LOC: HO.US 10:45
PROVIDERS: PCP Nurse Practitioner Family; Visit Provider Obstetrics & Gynecology
DX: R10.2 Pelvic and perineal pain (principal); T83.32XA Displacement of intrauterine contraceptive device, initial encounter
CPT/HCPCS: 76830; 76856

== ENCOUNTER → 2024-02-18 10:46 | Outpatient (BNV) | payer BC, SELFPAY | PROVIDERS: PCP Nurse Practitioner Family; Visit Provider Radiology Diagnostic Radiology | DX: R10.2 Pelvic and perineal pain (principal) | CPT/HCPCS: 76856 ==

== ENCOUNTER → 2024-05-20 12:33 | Outpatient (BNVA) | payer OTHER, SELFPAY | PROVIDERS: PCP Nurse Practitioner Family; Visit Provider Obstetrics & Gynecology | DX: T83.32XA Displacement of intrauterine contraceptive device, initial encounter (principal); R10.2 Pelvic and perineal pain; D25.9 Leiomyoma of uterus, unspecified | CPT/HCPCS: 99212 ==

== ENCOUNTER 2024-05-29 10:44 | Outpatient (REF) | payer OTHER, SELFPAY ==
--- OUTSIDE RECORDS SUMMARY | 2024-05-29 11:33 | XMS_ITS | Encounter Summary ---
Author Organization [employer] Address [address] [place] [address] [address] [place] [address] Care Team Providers Care Traffic Or System Dispatcher Name Role Phone Fartun Crouch CARD FIXER Primary Care Provider [phone] Cristiane Christopher OFFICE TECHNICIAN Primary Care Provider [phone] Maryjane Borja CARD FIXER Primary Care Provider [phone] Encounter Details Date Type Department Care Team (Late st Contact Info) Description 01/14/2023 Abstract [facility] [address] [place] [address] Fartun Crouch FNP [address] [place] [address] Social History Tobacco Use Types Packs/Day Years Used Date Smoking Tobacco: Never Depression Answer Date Recorded Patient Health Questionnaire-9 Score 1 07/04/2022 Depression Answer Date Recorded Patient Health Questionnaire-2 Score 0 07/04/2022 Comments Unknown Sex and Gender Information Value Date Recorded Sex Assigned at Female 02/12/2022 10:20 AM EDT Legal Sex Female 10:20 AM EDT Gender Identity Female 02/12/2022 10:20 AM EDT Sexual Orientation Straight 02/12/2022 10 :20 AM EDT documented as of this encounter Plan of Treatment Not on file documented as of this encounter Procedures Procedure Name Priority Date/Time Associated Diagnosis Comments BIOPSY CERVIX Routine 07/10/2022 COLPOSCOPY Routine 06/26/2022 HM PAP/HPV Routine 05/16/2022 PAP/HPV Routine 02/03/2020 documented in this encounter Results * Biopsy cervix (07/10/2022) [facility] Provider IN CLINIC/BEDSIDE ORDERAB LES Final Result * (ABNORMAL) Colposcopy (06/26/2022) Result [facility] IN CLINIC/BEDSIDE ORDERAB LES Final Result * (ABNORMAL) Hm Pap Smear (05/16/2022) Pap Epithelial cell abnormality(A ) Negative for intraephithelial lesion or malignancy, Other HPV Detected Result [facility] Provider [facility] Edited Result - Final * Hm Pap Smear (02/03/2020) Pap Negative for intraephithelial lesion or malignancy Negative for intraephithelial lesion or malignancy, Other HPV Undetected Result [facility] Final Result documented in this encounter Visit Diagnoses Not on filedocumented in this encounter Additional Health Concerns Assessment Noted Time PHQ-9 Depression Total Score: 1 07/05/19 23 3:10 PM EDT documented as of this encounter Care Teams Traffic Or System Dispatcher Relationship Specialty Start Date End Date Fartun Crouch FNP [address] [place] [id number] PCP - General Family Medicine 01/03/23 12/16/23 Cristiane Christopher NP [address] [place] [address] PCP - General Family Medicine 12/17/23 02/13/24 Maryjane Borja FNP [address] [place] [id number] PCP - General Family Medicine 02/14/24 documented as of this encounter
--- OUTSIDE RECORDS SUMMARY | 2024-05-29 11:33 | XMS_ITS | Clinical Summary ---
Author Organization [employer] Address [address] [place] [address] [address] [place] [address] Care Team Providers Care Fruit Tester Name Role Phone Maryjane Borja CAR CONSTRUCTION SUPERINTENDENT Primary Care Provider [phone] Allergies Active Allergy Reactions Criticality Noted Date Comments Peanut-Containing Drug Products Anaphylaxis High Medications predniSONE (Deltasone) 20 MG tablet PLEASE SEE ATTACHED FOR DETAILED DIRECTIONS 3 Active fluticasone (Flonase) 50 MCG/ACT nasal spray ADMINISTER 2 SPRAYS INTO EACH NOSTRIL ONCE A DAY DIRECTED 2 Active cholecalciferol (Vitamin D-3) 50 MCG (2000 UT) capsuleIndications :Low vitamin D level Take 1 capsule (50 mcg) by mouth in the morning. 30 capsule 11 3 Active lidocaine (Lidoderm) 5 % patchIndications:C hronic right-sided low back pain, unspecified whether sciatica present Apply 1 patch topically in the morning. Remove & discard patch within 12 hours or as directed by . 30 patch 3 3 Active rosuvastatin (Crestor) 10 MG tabletIndications: Hyperlipidemia, unspecified hyperlipidemia type TAKE 1 TABLET BY MOUTH EVERY DAY 90 tablet 2 4 Active Active Problems Problem Noted Date Diagnosed Date Low vitamin D level 08/08/2022 Assessment & Plan (08/08/2022 9:31 AM EDT): Patient stated that if I ordered her a vitamin D supplement that she would take it. Endometriosis 08/07/2022 Assessment & Plan (08/07/2022 3:01 PM EDT): ENTERED: ??07/06/22-1439 ?SP TYPE: Surgical ? OTHR DR: Celestine Jeninngs MANAGER CREDIT COLLECTIONS ? ORDERED: ??HE Stain/2, Gross Micro L4, Gross Micro L5/2 ? Diagnosis ? A. ??Cervix, cone excision: ?- Inflamed cervical transformation zone mucosa with reactive changes. ?- Small focus of benign appearing endometrial glands and stroma. ??See comment. ? B. ??Cervix, top hat, excision: ?- Mildly inflamed endocervical mucosa; no atypia identified. ?- No squamous epithelium identified. ? C. ??Endocervix, post cone curettage: ??Inflamed endocervical and transformation zone ? mucosa with reactive changes. ? COMMENT: ??The endometrial tissue in part A is consistent with a small focus of ? endometriosis. ?? Elevated blood pressure reading 07/04/2022 Assessment & Plan (08/08/2022 9:27 AM EDT): Radha's blood pressure is well managed. I will not be starting her on any new medications today. She is a very fit person and aware of her health. Counseled low-salt diet. Call clinic for high BP >170/90 or low <90/60. Assessment & Plan (07/04/2022 5:26 PM EDT): 120/90 befor leaving clinic She is a very health conscious person and very physically active, so I gave her a copy of the dash diet hand out and a BP log. Patient is to record BP twice daily, morning and night and return in one month with BP log and BP machine. Chronic low back pain 03/25/2018 Assessment & Plan (08/08/2022 9:29 AM EDT): Ordered lidocaine patches as per patient request. Excessive and frequent menstruation 03/25/2018 Overview (07/04/2022): Had normal endometrial biopsy 04/2021. Had Mirena IUD inserted 2021 by Con at [facility] [place] and after that is reported at [facility] CAR OPER[facility] note that menses are light, no pelvic pain, pressure or any other concerns. Her last Ultrasound done on 11/27/21 showed the following: * The fundal leiomyoma remains similar in appearance compared to 04/10/2021. * The contraceptive device is well centered within the endometrium. * 3.5 cm simple cyst of the left ovary. Otherwise, the adnexa are unremarkable. Nasal polyps 03/25/2018 Immunizations Name Administration Dates Next Due Influenza Injectable Quadriv alant Preservative Free IIV4 MDCK 03/06/2021 Influenza injectable quadriv alent IIV4 with preservative 01/06/2019,02/03/2018,12/30/2015 Influenza injectable quadriv alent preservative free 01/27/2020 Influenza, IIV3, injectable 02/02/2014, 3,02/15/2012 Influenza, seasonal, injecta ble, preservative free 01/29/2017,01/18/2015 Tdap 12/30/2015 Family History Medical History Relation Name Comments Hyperlipidemia Father Hypertension Father Lung cancer Mother Stomach cancer Paternal Grandfather Stroke Paternal Grandmother Relation Name Status Comments Father Mother Paternal Grandfather Paternal Grandmother Social History Tobacco Use Types Packs/Day Years Used Date Smoking Tobacco: Never Tobacco Cessation:Counseling Given: Not Answered Alcohol Use Standard Drinks/Week Comments Not Currently 0 (1 standard drink = 0.6 oz pur e alcohol) a couple beers a month Depression Answer Date Recorded Patient Health Questionnaire-9 Score 1 07/04/2022 Housing Stability Answer Date Recorded What is your housing situation today? I have terri brian 07/19/[address] you li ve. Do you have problems with any of the following? None of the above 07/19/2023 Food Insecurity Answer Date Recorded Within the past 12 months, y ou worried that your food would run out before you got money to buy more: Never True 07/19/2023 Within the past 12 months,th e food you bought just didn't last and you didn't have enough money to get more: Never True 08/2023 Transportation Answer Date Recorded In the past 12 months, has l ack of transportation kept you from medical appts, meetings, work or from getting things needed for daily living? No 07/19/2023 Utilities Answer Date Recorded In the past 12 months, has t he [employer], gas, oil or water company threatened to shut off services in your home? No 07/19/2023 Depression Answer Date Recorded Patient Health Questionnaire-2 Score 0 07/04/2022 Comments Unknown Sex and Gender Information Value Date Recorded Sex Assigned at Female 02/12/2022 10:20 AM EDT Legal Sex Female 10:20 AM EDT Gender Identity Female 02/12/2022 10:20 AM EDT Sexual Orientation Straight 02/12/2022 10 :20 AM EDT Last Filed Vital Signs Vital Sign Reading Time Taken Comments Blood Pressure 120/78 07/26/2023 9:56 AM EDT Pulse 74 07/26/2023 9:56 AM EDT Temperature 36.7 ??C (98.1 ??F) 07/26/2023 9:56 AM ED T Respiratory Rate 20 07/26/2023 9:56 AM EDT Oxygen Saturation 97% 07/26/2023 9:56 AM EDT Inhaled Oxygen Concentration - - Weight 73.1 kg (161 lb 3.2 oz) 07/26/2023 9:56 A M EDT Height 167.6 cm (5' 6 ) 07/26/2023 9:56 AM EDT Body Mass Index 26.02 07/26/2023 9:56 AM EDT Plan of Treatment Health Maintenance Due Date Last Done Comments HIV Screening 1980 Alcohol/Substance Use Screening 1991 Family Planning (PISQ) 12/09/1994 Hepatitis B Vaccines (1 of 3 - 19+ 3-dose series) 12/09/1998 Depression Screening 07/05/2023 07/04/2022, 07/05/19 23 COVID-19 Vaccine ( season) 2023 05/03/2021, 07/27/2020, 07/05/2020 Influenza Vaccine (#1) 2023 , 01/27/2020, 01/06/2019, Additional history exists Cervical Cancer Screening 03/19/2024 HPV/Cotest 03/19/2024 05/16/2022, 1004/2019, 03/19/2017 Pap Smear 03/19/2024 03/19/2023, 02/0 04/2022, 02/03/2020 SDOH Screening 07/18/2024 07/19/2023 Tobacco Screening 07/25/2024 07/26/2023 Mammogram 05/24/2025 05/24/2023 DTaP/Tdap/Td Vaccines (2 - Td or Tdap) 12/29/2025 12/30/2015 Zoster Vaccines (1 of 2) 12/09/2029 RSV Patients and Patients Aged 60 years or older (1 - 1-dose 75+ series) 12/09/2054 Hepatitis C Screening Completed 07/26/2023, 021 HIB Vaccines Aged Out No longer eligi ble based on patient's age to complete this topic HPV Vaccines Aged Out No longer eligi ble based on patient's age to complete this topic Hepatitis A Vaccines Aged Out No long er eligible based on patient's age to complete this topic IPV Vaccines Aged Out No longer eligi ble based on patient's age to complete this topic Meningococcal Vaccine Aged Out No kahlil alvin eligible based on patient's age to complete this topic Pneumococcal Vaccine: Pediatrics (0 to 5 Years) and At-Risk Patients (6 to 49) Years) Aged Out No longer eligible based on patient's age to complete this topic RSV under 20 months Aged Out No longe r eligible based on patient's age to complete this topic Rotavirus Vaccines Aged Out No longer eligible based on patient's age to complete this topic Procedures Procedure Name Priority Date/Time Associated Diagnosis Comments HEPATITIS C AB W/REFL TO HCV RNA, QN, PCR Routine 07/26/2023 10:59 AM EDT Routine adult health maintenance BI MAMMOGRAM SCREENING TOMOSYNTHESIS BILATERAL Routine 05/24/2023 11:21 AM EST PAP SMEAR Routine 03/19/2023 8:30 AM EST HM PAP/HPV Routine 05/16/2022 from Last 3 Months or Most Recently Relevant to Health Maintenance Results * Hepatitis C Antibody with Reflex to HCV, RNA, Quantitative, Real-Time PCR (07/26/2023 10:59 AM EDT) Hepatitis C Antibody Nonreactive Nonreactive [facility] Comment:Antibodies to HCV no t detected; does not exclude early acuteHCV infection. Blood Venous blood specimen / Unknown 07/26/2023 10:59 AM EDT 07/26/2023 11:25 AM EDT Fartun Crouch CAR CONSTRUCTION SUPERINTENDENT LAB BLOOD ORDERABLES Final Resu lt [facility] [address] [place] [address] [phone] * BI Mammogram Screening Tomosynthesis Bilateral (05/24/2023 11:21 AM EST) Anatomical Region Laterality Modality Breast Bilateral Mammography 05/24/2023 11:2 1 AM EST Narrative 06/17/2023 2:45 PM EST ? [facility] [place] ? [address] ?[place] [address] ? Mammography Report ? Signed ? Patient: Ivory Miller,Radha ?MR#: M ?? [id number] ? : 1980 ?Acct:[id number] ? Age/Sex: 42 / F ?ADM Date: 02/09/24 ? Loc: HO.MAMMO ? Attending Dr: Ben Andujar MD ? Ordering Physician: Ben Andujar MD ?Results: 1Negativ ?? e ? Date of Service: 05/24/23 ?Follow Up: 1 Year From Orig ?? inal Mammogram ? Procedure(s): MM tomosynthesis screening BI ?? Accession Number(s): [id number] ? cc: Fartun Crouch NP; Ben Andujar MD ? EXAMINATION: ?? MM SCREENING DIGITAL BREAST TOMOSYNTHESIS, BILATERAL ? CLINICAL INFORMATION: ? Screening. Asymptomatic. ? COMPARISON: ?? Mammography: This study is compared with prior exams dating back to ?? 2019. ? TECHNIQUE: ?? Digital breast tomosynthesis is performed in both the craniocaudal and ?? mediolateral oblique views along with computer-aided detection (CAD). ?? Synthesized 2D images are generated from the tomosynthesis. ? FINDINGS: ?? The breasts are heterogeneously dense, which may obscure small masses ?? (ACR BI-RADS breast composition Category c). ? There are no significant masses, abnormal calcifications, or other ?? abnormalities. ? MM/MM tomosynthesis screening BI ?? IMPRESSION: ?? No mammographic evidence of malignancy. ? ASSESSMENT: ? BI-RADS BI-RADS 1 - Negative ? RECOMMENDATION: ?? Routine annual mammography screening. ? 1 year F/U ? This examination should not preclude the clinical evaluation of a ?? suspicious palpable abnormality. ? This patient's information was entered into a reminder system with a ?? target due date for their next mammogram. ? Dictated By: ?Jesenia Asharf MD ? Signed By: ?<Electronically signed by Jesenia Ashraf MD in OV> ? 06/17/23 1441 ? DD/ ? TD/TT: ? Virologist: ? Procedure Note Donotuseinterpreter, Image - 06/17/2023 [facility] [address] [place] [address] Mammography Report Signed Patient: Shanelle Goodman#: M [id number] : 1980Acct:[id number] Age/Sex: 42 / FADM Date: 05/24/23 Loc: HO.MAMMO Attending Dr: Ben Andujar MD Ordering Physician: Ben Andujar MDResults: 1Negativ e Date of Service: 05/24/23Follow Up: 1 Year From Orig inal Mammogram Procedure(s): MM tomosynthesis screening BI Accession Number(s): [id number] cc: Fartun Crouch MANAGER CREDIT COLLECTIONS; Ben Andujar MD EXAMINATION: MM SCREENING DIGITAL BREAST TOMOSYNTHESIS, BILATERAL CLINICAL INFORMATION: Screening. Asymptomatic. COMPARISON: Mammography: This study is compared with prior exams dating back to 2019. TECHNIQUE: Digital breast tomosynthesis is performed in both the craniocaudal and mediolateral oblique views along with computer-aided detection (CAD). Synthesized 2D images are generated from the tomosynthesis. FINDINGS: The breasts are heterogeneously dense, which may obscure small masses (ACR BI-RADS breast composition Category c). There are no significant masses, abnormal calcifications, or other abnormalities. MM/MM tomosynthesis screening BI IMPRESSION: No mammographic evidence of malignancy. ASSESSMENT: BI-RADS BI-RADS 1 - Negative RECOMMENDATION: Routine annual mammography screening. 1 year F/U This examination should not preclude the clinical evaluation of a suspicious palpable abnormality. This patient's information was entered into a reminder system with a target due date for their next mammogram. Dictated By: Jesenia Ashraf MD Signed By: <Electronically signed by Jesenia Ashraf MD in OV> 06/17/23 1441 DD/ 1121 TD/TT: Virologist: [facility] External Provider IMG BI PROCEDURES Final Result * Pap Smear (03/19/2023 8:30 AM EST) 03/19/2023 8:30 AM EST 03/20/2023 12:30 PM EST Narrative [facility] - 03/27/2023 7:59 AM EST ----- ------- Name: Radha Goodman ?Age/Sex: 42/F ? : 1980 Unit#: [id number] ?? Attend Dr: Ben Andujar MD ?Re03/19/23 ?Status: DEP REF ? Location: HO.LNP ?Disch: ? ----- ------- SPEC : [id number] ?RECD: 03/20/23-1230 ? STATUS: ??SOUT ? REQ NUM: [id number] ? FRANDY: 03/19/23-829 ? SUBM DR: Ben Andujar MD ? ENTERED: ??03/20/23-1502 ?SP TYPE: Pap Smr ?OTHR DR: Celestine Jennings MANAGER CREDIT COLLECTIONS ? ORDERED: ??Pap Smear ? Interpretation ?? Satisfactory for evaluation. ?? Negative for intraepithelial lesion or malignancy. ?HPV mRNA E6/E7: ?NOT DETECTED ? This assay detects E6/E7 viral messenger RNA (mRNA) from 14 high-risk HPV types (16, 18, ?? 31, 33, 35, 39, 45, 51, 52, 56, 58, 59, 66, 68) ?? HPV testing performed by [facility], [place], [place]. ??See reference laboratory ?? portion of the EMR for entire report. ?Clinical Information LMP: 03/08/23 Previous PAP test: 05/16/22, ASCUS HPV+ ? Material Received ?? ThinPrep-Cervical Copies To: ?? Celestine Jennings NP ?? [address] ?? [place] [address] ?? [phone] ?? Ben Andujar MD ?? [address] [place] [address] [address] ?? [place] [address] ?? [phone] ----- ------- Signed (signature on file) WILLY Neal (ASCP) 03/27/23 0759 ? ----- ------- ? END OF REPORT ? us Generic External Data Provider LAB [facility]OLOGY [facility] Final Result [facility] [address] [place] [address] [phone] * (ABNORMAL) Pap Smear (05/16/2022) Pap Epithelial cell abnormality(A ) Negative for intraephithelial lesion or malignancy, Other HPV Detected us Historical Provider HEALTH MAINTENANCE Edited Result - Final from Last 3 Months or Most Recently Relevant to Health Maintenance Insurance HMO Care Teams Fruit Tester Relationship Specialty Start Date End Date Maryjane Borja FNP [address] [place] [id number] PCP - General Family Medicine 02/14/24
== END 2024-05-29 10:45 | disposition home or self-care (01) ==
LOC: HO.MAMMO 10:44
PROVIDERS: PCP Nurse Practitioner Family; Visit Provider Nurse Practitioner Family
DX: Z12.31 Encounter for screening mammogram for malignant neoplasm of breast (principal)
CPT/HCPCS: 77063; 77067

== ENCOUNTER → 2024-05-29 11:00 | Outpatient (BNV) | payer OTHER, SELFPAY | PROVIDERS: PCP Nurse Practitioner Family; Visit Provider Internal Medicine | DX: Z12.31 Encounter for screening mammogram for malignant neoplasm of breast (principal) | CPT/HCPCS: 77063; 77067 ==

== ENCOUNTER 2024-08-12 13:21 | Outpatient (AMB) | payer OTHER, SELFPAY ==
--- NOTE | 2024-08-12 13:25 | MHC.OFFVIS ---
Vital Signs 08/12/24 13:36 Height 5 ft 6 in Weight 156 lb BMI 25.2 BP 122/72 Intake Visit Reasons: AUTOMOTIVE LOT ATTENDANT annual exam Color Drum Worker: Color Drum Worker Present (Radha) Accompanied by: Self / Same As Patient Allergies No Known Allergies Allergy (Verified 08/12/24 13:27) Medication List - Last Reconciled 08/12/24 by Gita Ghotra CNM albuterol sulfate 90 mcg/actuation 2 puffs inhalation Q4-6H PRN fluticasone propionate 50 mcg/actuation (Allergy Relief (fluticasone)) 1 spray intranasal DAILY levonorgestrel (Mirena) 1 device intrauterine ONCE multivitamin (Daily Multi-Vitamin tablet) 1 tab PO DAILY rosuvastatin 10 mg PO DAILY Is last menstrual period known: Yes Last menstrual period: 08/07/24 Post menopausal: No Patient : No HPI HPI AUTOMOTIVE LOT ATTENDANT annual exam: Details: 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 She is not having any food service order clerk problems at the moment she has been seeing Dr. Andujar for abnormal Pap smears and she had a LEEP but there was still HPV noted afterwards so then he did a cone biopsy and with that procedure he had to remove the Mirena IUD and then replaced it with a new 1. She says that she was told though that her fibroids have even gotten a little bit smaller and she is no longer having any pain bleeding she gets a little bit of spotting sometimes with her menstrual cycle but that is about it and compared to her painful awful periods before this is so much more improved. She knows the string is not visible but she also knows that it in their in that it was just verified with an ultrasound and she had a full discussion with Dr. Andujar afterwards very recently. She would like to do the Pap smear today just to be very sure, and she has no need or concern whatsoever for STI testing. She is up-to-date on her mammograms and all of her other healthcare needs she does need to switch primary care provider's because of the change of insurance and she is well aware of who is available both in [place] and [place] and may be switching to 1 of them. 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 She used to run but now she walks for exercise. [facility] Medical History (Updated 08/12/24 @ 14:40 by Gita Ghotra CNM) Elevated cholesterol Anemia ASCUS (atypical squamous cells of undetermined significance) on gynecologic Papanicolaou smear complicating , antepartum Lower back pain Surgical History Hx of nasal polypectomy H/O LEEP Family History Mother Liver cancer Lung cancer HTN (hypertension) Paternal Grandfather Stomach cancer Social History Household Members: Spouse Housing: House Alcohol intake: current Alcohol intake frequency: holidays/special occasions only Patient Tobacco Use Status: Never used Tobacco Substance Use Type: Marijuana service: No Current occupational status: unemployed Sexual orientation: Straight/Heterosexual Gender identity: Female Female Reproductive History Menstrual Age of Menarche: 13 Duration of menses: 3-5 days Date of last menstrual period: 08/07/24 control method: progestin IUCD (Mirena ) Total pregnancies: 1 Full term: 1 Date of last pap smear: 03/19/23 (negative ) History of abnormal pap smear: No Date of Mammogram: 05/29/24 Physical Exam Vital Signs: Last Vital Signs BP 122/72 08/12/24 13:36 BMI result Body Mass Index 25.2 Const General: healthy appearing, comfortable, no acute distress, well developed and alert Nutritional Appearance: average body habitus Orientation/consciousness: patient oriented x3 Limitations: no limitations HEENT Head: Yes normocephalic Neck Neck: Yes normal visual inspection Chest Chest palpation & inspection: normal inspection of the chest Breast/axilla inspection: normal inspection of the breasts and normal inspection of the axillae Breast/axilla palpation: normal palpation of the breasts and normal palpation of the axillae Resp Effort & Inspection: normal respiratory effort GI Inspection: Yes normal to inspection, No Abdominal wall edema and No distended Palpation (GI): Soft to palpation and nontender Other: Normal external exam vagina pink and moist cervix multiparous pink smooth healthy appearing does not appear visibly scarred from LEEP or cone biopsy procedures. Cervix is long close thick mobile firm nontender and uterus is small anteverted mobile nontender does not feel remarkably enlarged from fibroids at all. Adnexa not enlarged nontender and good tone with Kegel. General: Yes bladder normal to palpation External Female Exam: normal external appearance and normal appearance of the urethra Speculum Exam - Vagina: normal appearance of the vagina, normal palpation and normal vaginal discharge Speculum Exam - Cervix: normal appearance of the cervix, normal palpation and nontender Bimanual exam- vagina & uterus: normal bimanual exam, normal palpation, uterine size normal, bladder normal to palpation, consistency normal, normal palpation, uterine mobility normal, uterine shape normal, No Cervical tenderness present, non-tender and no cervical motion tenderness Bimanual Exam- Adnexa, other: normal adnexae, no masses, normal and No adnexal tenderness Neuro General: patient oriented x3 Assessment & Plan Assessment & Plan (1) Well woman exam with routine gynecological exam: Code(s): Z01.419 - Encounter for gynecological examination (general) (routine) without abnormal findings Category: Medical (2) History of abnormal cervical Pap smear: Comment: normal pap and neg hpv 11/20. ascus[facility]... Code(s): Z87.42 - Personal history of other diseases of the female genital tract Category: Medical (3) Fibroid uterus: Code(s): D25.9 - Leiomyoma of uterus, unspecified Category: Medical (4) Menorrhagia, premenopausal: Code(s): N92.4 - Excessive bleeding in the premenopausal period Category: Medical (5) IUD check up: Code(s): Z30.431 - Encounter for routine checking of intrauterine contraceptive device Category: Medical (6) ELMA II (cervical intraepithelial neoplasia II): Comment: Status post LEEP cone with post cone ECC in 07/05 with negative pathology Code(s): N87.1 - Moderate cervical dysplasia Category: Medical (7) ASCUS (atypical squamous cells of undetermined significance) on gynecologic Papanicolaou smear complicating , antepartum: Comment: 06/07 ascus/HPV positive, colpo/biopsy/ECC ?ELMA 2 07/05 LEEP cone with post cone ECC , pathology negative 04/06 co testing negative/colpo/biopsy/ECC negative Category: Medical (8) Breast cancer screening: Code(s): Z12.39 - Encounter for other screening for malignant neoplasm of breast Category: Medical Plan Please see HPI for the details of everything we talked about.. She is very happy with the Mirena and how it is helping her with her menses she is very happy that things are looking good after cone biopsy. She wanted a Pap today and we did 1 with HPV code testing for reassurance. She knows the string is missing and not visible from her Mirena and she has already had a discussion with Dr. Andujar that he would be the 1 replacing it when it comes time. She is getting regular mammograms and all her other the health screenings and is looking forward to meeting a new primary healthcare provider soon and we will be choosing between [facility] in [place] because of who she knows in both sites and we will be discussing future colonoscopies screening to started age 44.. RTC 1 year. Discussed that she is in fact working and doing a hard work of caring for her father and uncle and she is very aware that she is privilege to have the time with him(her father) Coding Level of Care Code Est Pt Prev Care 40-64y(11392) Diagnoses Well woman exam with routine gynecological exam Z01.419 History of abnormal cervical Pap smear Z87.42 Fibroid uterus D25.9 Menorrhagia, premenopausal N92.4 IUD check up Z30.431 ELMA II (cervical intraepithelial neoplasia II) N87.1 ASCUS (atypical squamous cells of undetermined significance) on gynecologic Papanicolaou smear complicating , antepartum O28.2; R87.619 Breast cancer screening Z12.39
[2024-08-12 13:36] VITALS: BP 122/72; BMI 25.2
--- OUTSIDE RECORDS SUMMARY | 2024-08-12 14:43 | XMS_ITS | Clinical Summary ---
Author Organization [employer] Address [address] [place] [address] 7[address] [place] [address] Care Team Providers Care Plant Physiologist Name Role Phone Maryjane Borja MANAGER PHOTO Primary Care Provider [phone] Allergies Active Allergy Reactions Criticality Noted Date [...] ?SP TYPE: Surgical ? OTHR DR: Celestine Jennings ARCHITECTURAL RENDERER ? ORDERED: ??HE Stain/2, Gross Micro L4, [...] Mirena IUD [place] 2021 by [place] [facility] [place] and after that is reported at [employer]PER[facility] note that menses are light, no pelvic pain, pressure or any other concerns. Her last Ultrasound done on 11/27/21 showed the following: * The fundal leiomyoma remains similar in appearance compared to 04/10/2021. * The contraceptive device is well centered within the endometrium. * 3.5 cm simple cyst of the left ovary. Otherwise, the adnexa are unremarkable. Nasal polyps 03/25/2018 Encounters Date Type Department Care Team Description 05/29/2024 Orders Only [facility] MEDICINE [address] [place] [address] Fartun Crouch FNP from Last 3 Months Immunizations Name Administration Dates Next Due Influenza [...] the past 12 months, has t he electric, gas, oil or water company threatened to [...] Cervical Cancer Screening 03/19/2024 HPV/Cotest 03/19/2024 05/16/2022, 01/14, 03/19/2017 Pap Smear 03/19/2024 03/19/2023, 02/04/2022, 02/03/2020 SDOH Screening 07/18/2024 07/19/2023 Tobacco Screening 07/25/2024 07/26/2023 DTaP/Tdap/Td Vaccines (2 - Td or Tdap) 12/29/2025 12/30/2015 Mammogram 05/29/2026 05/29/2024, 05/24/2023 Zoster Vaccines (1 of 2) 12/09/2029 RSV [...] Procedure Name Priority Date/Time Associated Diagnosis Comments BI MAMMOGRAM SCREENING TOMOSYNTHESIS BILATERAL Routine 05/29/2024 10:50 AM EST HEPATITIS C AB W/REFL TO HCV RNA, QN, PCR Routine 07/26/2023 10:59 AM EDT Routine adult health maintenance PAP SMEAR Routine 03/19/2023 8:30 AM EST HM PAP/HPV Routine 05/16/2022 from Last 3 Months or Most Recently Relevant to Health Maintenance Results * BI Mammogram Screening Tomosynthesis Bilateral (05/29/2024 10:50 AM EST) Anatomical Region Laterality Modality Breast Bilateral Mammography 05/29/2024 10:5 0 AM EST Narrative 06/06/2024 11:51 AM EST ? [facility] [place] ? [address] ?[place] [address] ? Mammography Report ? Signed ? Patient: Radha Goodman ?MR#: M ?? [id number] ? : 1980 ?Acct:[id number] ? Age/Sex: 43 / F ?ADM Date: 05/29/ ? Loc: HO.MAMMO ? Attending Dr: Fartun Crouch ARCHITECTURAL RENDERER ? Ordering Physician: Fartun Crouch ARCHITECTURAL RENDERER ?Results: 1Negativ ?? e ? Date of Service: 05/29/ ?Follow Up: 1 Year From Orig ?? inal Mammogram ? Procedure(s): MM tomosynthesis screening BI ?? Accession Number(s): [id number] ? cc: Fartun Crouch ARCHITECTURAL RENDERER ? EXAMINATION: ?? MM SCREENING DIGITAL BREAST TOMOSYNTHESIS, BILATERAL ? CLINICAL INFORMATION: ? Screening. Asymptomatic. ? COMPARISON: ?? Mammography: Comparison is made with available priors ? TECHNIQUE: ?? Digital breast mammography with tomosynthesis is performed in both the ?? craniocaudal and mediolateral oblique views along with computer-aided ?? detection (CAD). ? FINDINGS: ?? The breasts are heterogeneously [...] due date for their next mammogram. ? Electronically signed by: ??Mima Yarbrough DO ??06/06/2024 11:47 AM EST ? Dictated By: ?Mima Yarbrough DO ? Signed By: ?<Electronically signed by Mima Yarbrough DO in OV> ? 06/06/24 1147 ? DD/ 1050 ? TD/TT: 05/29/24 1110 ? Dynamite Packing Machine Operator: ? Procedure Note Emil, Image - 06/06/2024 [facility] [address] [place] [address] Dr. [place], [place] [address] Mammography Report Signed Patient: Shanelle Goodman#: M [id number] : 1980Acct:[id number] Age/Sex: 43 / FADM Date: 05/29/24 Loc: HO.MAMMO Attending Dr: Fartun Crouch ARCHITECTURAL RENDERER Ordering Physician: Fartun Crouch NPResults: 1Negativ e Date of Service: 05/29/24Follow Up: 1 Year From Orig ina Mammogram Procedure(s): MM tomosynthesis screening BI Accession Number(s): [id number] cc: Fartun Crouch ARCHITECTURAL RENDERER EXAMINATION: MM SCREENING DIGITAL BREAST TOMOSYNTHESIS, BILATERAL CLINICAL INFORMATION: Screening. Asymptomatic. COMPARISON: Mammography: Comparison is made with available priors TECHNIQUE: Digital breast mammography with tomosynthesis is performed in both the craniocaudal and mediolateral oblique views along with computer-aided detection (CAD). FINDINGS: The breasts are heterogeneously dense, which [...] target due date for their next mammogram. Electronically signed by: Mima Yarbrough DO 06/06/2024 11:47 AM [facility] Dictated By: Mima Yarbrough DO Signed By: <Electronically signed by Mima Yarbrough DO in OV> 06/06/24 1147 DD/ 1050 TD/TT: 05/29/24 1110 Dynamite Packing Machine Operator: Fartun Crouch MANAGER PHOTO IM BI PROCEDURES Edited Result - Final * Hepatitis C Antibody with Reflex to HCV, RNA, Quantitative, Real-Time PCR (07/26/2023 10:59 AM EDT) Hepatitis C Antibody Nonreactive Nonreactive [facility] Comment:Antibodies to HCV no t detected; does not exclude early acuteHCV infection. Blood Venous blood specimen / Unknown 07/26/2023 10:59 AM EDT 07/26/2023 11:25 AM EDT Fartun Crouch MANAGER PHOTO LAB BLOOD ORDERABLES Final Resu lt [facility] [address] [place] [address] [phone] * Pap Smear (03/19/2023 8:30 AM EST) 03/19/2023 8:30 AM EST 03/20/2023 12:30 PM EST Narrative [facility] - 03/27/2023 7:59 AM EST ----- ------- Name: Radha Goodman ?Age/Sex: 42/F ? : 1980 Unit#: [id number] ?? Attend Dr: Ben Andujar MD ?Re03/19/23 ?Status: DEP REF ? Location: HO.LNP ?Disch: ? ----- ------- SPEC : [id number] ?RECD: 03/20/23-1230 ? STATUS: ??SOUT ? REQ NUM: [id number] ? FRANDY: 03/19/23 ? SUBM DR: Ben Andujar MD ? ENTERED: ??03/20/23-150 ?SP TYPE: Pap Smr ?OTHR DR: Celestine Jennings ARCHITECTURAL RENDERER ? ORDERED: ??Pap Smear ? Interpretation ?? Satisfactory for evaluation. ?? Negative for intraepithelial lesion or malignancy. ?HPV mRNA E6/E7: ?NOT DETECTED ? This assay detects E6/E7 viral messenger RNA (mRNA) from 14 high-risk HPV types (16, 18, ?? 31, 33, 35, 39, 45, 51, 52, 56, 58, 59, 66, 68) ?? HPV testing performed by [employer], [place], [place]. ??See reference laboratory ?? portion of the EMR for entire report. ?Clinical Information LMP: 03/08/23 Previous PAP test: 05/16/22, ASCUS HPV+ ? Material Received ?? ThinPrep-Cervical Copies To: ?? Celestine Jennings ARCHITECTURAL RENDERER ?? [address] ?? [place] [address] ?? [phone] ?? Ben Andujar MD ?? [address] ?? [place] [address] ?? [phone] ----- ------- Signed (signature on file) WILLY Neal (ASCP) 03/27/23 0759 ? ----- ------- ? END OF REPORT ? Generic External Data Provider LAB CYTOLOGY ORDE RABLES Final Result [facility] [address] [place] [address] [phone] * (ABNORMAL) Pap Smear (05/16/2022) Pap Epithelial cell abnormality(A ) Negative for intraephithelial lesion or malignancy, Other HPV Detected Historical Provider HEALTH MAINTENANCE Edited Result - Final from Last 3 Months or Most Recently Relevant to Health Maintenance Insurance [facility] H[facility] Care Teams Plant Physiologist Relationship Specialty Start Date End Date Maryjane Borja FNP [address] [place] [phone] PCP - General Family Medicine 02/14/24
--- OUTSIDE RECORDS SUMMARY | 2024-08-12 14:43 | XMS_ITS | Encounter Summary ---
Author Organization [employer] Address [address] [place] [address] 7t [place] [address] Care Team Providers Care Director Educational Radio Name Role Phone Fartun Crouch RIB PULLER Primary Care Provider [phone] Cristiane Christopher AIRCRAFT DISPATCHER Primary Care Provider [phone] Maryjane Borja RIB PULLER Primary Care Provider [phone] Encounter Details Date Type Department Care Team (Late st Contact Info) Description 01/14/2023 Abstract [facility] MEDICINE [address] [place] [address] Fartun Crouch FNP [address] [place] [address] Social History Tobacco Use Types Packs/Day Years [...] this encounter Results * Biopsy cervix (07/10/2022) [facility] Provider IN CLINIC/BEDSIDE ORDERAB LES Final Result * (ABNORMAL) Colposcopy (06/26/2022) Result [facility] Cari ZUNIGA IN CLINIC/BEDSIDE ORDERAB LES Final Result * (ABNORMAL) Hm Pap Smear (05/16/2022) Pap Epithelial cell abnormality(A ) Negative for intraephithelial lesion or malignancy, Other HPV Detected Result [facility] Provider [facility] Edited Result - Final * Hm Pap Smear (02/03/2020) Pap Negative for intraephithelial lesion or malignancy Negative for intraephithelial lesion or malignancy, Other HPV Undetected Result [facility] Cari ZUNIGA HEALTH MAINTENANCE Final Result documented in this encounter Visit Diagnoses Not on filedocumented in this encounter Additional Health Concerns Assessment Noted Time PHQ-9 Depression Total Score: 1 07/05/19 23 3:10 PM EDT documented as of this encounter Care Teams Director Educational Radio Relationship Specialty Start Date End Date Fartun Crouch FNP [address] [place] [address] PCP - General Family Medicine 01/03/23 12/16/23 Cristiane Christopher NP [address] [place] [address] PCP - General Family Medicine 12/17/23 02/13/24 Maryjane Borja FNP [address] [place] [address] PCP - General Family Medicine 02/14/24 documented as of this encounter
== END 2024-08-12 14:55 | disposition home or self-care (01) ==
LOC: HO.HWSM 13:21
PROVIDERS: PCP Nurse Practitioner Family; Visit Provider Advanced Practice Midwife
DX: Z01.419 Encounter for gynecological examination (general) (routine) without abnormal findings (principal); Z87.42 Personal history of other diseases of the female genital tract; D25.9 Leiomyoma of uterus, unspecified; N92.4 Excessive bleeding in the premenopausal period; N87.1 Moderate cervical dysplasia; O28.2 Abnormal cytological finding on antenatal screening of mother; R87.619 Unspecified abnormal cytological findings in specimens from cervix uteri; Z12.39 Encounter for other screening for malignant neoplasm of breast
CPT/HCPCS: 99396; 99459

== ENCOUNTER 2024-08-12 13:21 | Outpatient (REF) | payer OTHER, SELFPAY ==
--- OUTSIDE RECORDS SUMMARY | 2024-08-12 16:42 | XMS_ITS | Clinical Summary ---
Author Organization [employer] Address [address] [place] [address] 7t [place] [address] Care Team Providers Care Refinery Operator Light Ends Recovery Name Role Phone Freddy Michelle RAFAEL Primary Care Provider [phone] Allergies Active Allergy Reactions Criticality Noted Date Comments Peanut-Containing Drug Products Anaphylaxis High Medications predniSONE (Deltasone) 20 MG tablet PLEASE SEE ATTACHED FOR DETAILED DIRECTIONS 3 Active fluticasone (Flonase) 50 MCG/ACT nasal spray ADMINISTER 2 SPRAYS INTO EACH NOSTRIL ONCE A DAY DIRECTED 2 Active cholecalciferol (Vitamin D-3) 50 MCG (1999 UT) capsuleIndications :Low vitamin D level Take [...] TYPE: Surgical ? OTHR DR: Celestine Jennings VICE PRESIDENT QUALITY ASSURANCE ? ORDERED: ??HE Stain/2, Gross Micro L4, [...] [place] [facility] [place] that is reported at [employer] note that menses are light, no pelvic [...] Department Care Team Description 05/29/2024 Orders Only [facility] MEDICINE [address] [place] [address] Fartun Crouch FNP from Last 3 Months [...] EST Narrative 06/06/2024 11:51 AM EST ? [facility] [place] ? [address] ?[place] [address] ? Mammography Report ? Signed ? Patient: Radha Goodman ?MR#: M ?? [id number] ? : 1980 ?Acct:[id number] ? Age/Sex: 43 / F ?ADM Date: 05/29/ ? Loc: HO.MAMMO ? Attending Dr: Fartun Crouch VICE PRESIDENT QUALITY ASSURANCE ? Ordering Physician: Willa,Fartun VICE PRESIDENT QUALITY ASSURANCE ?Results: 1Negativ ?? e ? Date of Service: 05/29/ ?Follow Up: 1 Year From Orig ?? inal Mammogram ? Procedure(s): MM tomosynthesis screening BI ?? Accession Number(s): [id number] ? cc: Fartun Crouch VICE PRESIDENT QUALITY ASSURANCE ? EXAMINATION: ?? MM SCREENING DIGITAL BREAST [...] ??Mima Yarbrough DO ??06/06/2024 11:47 AM EST ?? RP ? Dictated By: ?Mima Yarbrough DO ? Signed By: ?<Electronically signed by Mima Yarbrough DO in OV> ? 06/06/24 1147 ? DD/ 1050 ? TD/TT: 05/29/24 1110 ? Truck Body Repairer: ? Procedure Note Emil, Image - 06/06/2024 [facility] [address] [place] [address] Dr. [place], [place] [address] Mammography Report Signed Patient: Shanelle Goodman#: M [id number] : 1980Acct:[id number] Age/Sex: 43 / FADM Date: 05/29/24 Loc: HO.MAMMO Attending Dr: Fartun Crouch VICE PRESIDENT QUALITY ASSURANCE Ordering Physician: Fartun Crouch NPResults: 1Negativ e Date of Service: 05/29/24Follow Up: 1 Year From [facility] ina Mammogram Procedure(s): MM tomosynthesis screening BI Accession Number(s): [id number] cc: Fartun Crouch VICE PRESIDENT QUALITY ASSURANCE EXAMINATION: MM SCREENING DIGITAL BREAST TOMOSYNTHESIS, BILATERAL [...] by: Mima Yarbrough DO 06/06/2024 11:47 AM EST Dictated By: Mima Yarbrough DO Signed By: <Electronically signed by Mima Yarbrough DO in OV> 06/06/24 1147 DD/ 1050 TD/TT: 05/29/24 1110 Truck Body Repairer: Fartun Crouch [facility] IM BI PROCEDURES Edited Result - Final * Hepatitis C Antibody with Reflex to HCV, RNA, Quantitative, Real-Time PCR (07/26/2023 10:59 AM EDT) Hepatitis C Antibody Nonreactive Nonreactive [facility] Comment:Antibodies to HCV no t detected; does not exclude early acuteHCV infection. Blood Venous blood specimen / Unknown 07/26/2023 10:59 AM EDT 07/26/2023 11:25 AM EDT Fartun Crouch [facility] LAB BLOOD ORDERABLES Final Resu lt [facility] [address] [place] [address] [phone] * Pap Smear (03/19/2023 8:30 AM EST) 03/19/2023 8:30 AM EST 03/20/2023 12:30 PM EST Narrative [facility] - 03/27/2023 7:59 AM EST ----- ------- Name: Radha Goodman ?Age/Sex: 42/F ? : 1980 Unit#: [id number] ?? Attend Dr: Ben Andujar MD ?Re03/19/23 ?Status: DEP REF ? Location: HO.LNP ?Disch: ? ----- ------- SPEC : [id number] ?RECD: 03/20/23-1230 ? STATUS: ??SOUT ? REQ NUM: [id number] ? FRANDY: 03/19/23 ? SUBM DR: Ben Andujar MD ? ENTERED: ??03/20/23-1502 ?SP TYPE: Pap Smr ?OTHR DR: Celestine Jennings VICE PRESIDENT QUALITY ASSURANCE ? ORDERED: ??Pap Smear ? Interpretation ?? Satisfactory for evaluation. ?? Negative for intraepithelial lesion or malignancy. ?HPV mRNA E6/E7: ?NOT DETECTED ? This assay detects E6/E7 viral messenger RNA (mRNA) from 14 high-risk HPV types (16, 18, ?? 31, 33, 35, 39, 45, 51, 52, 56, 58, 59, 66, 68) ?? HPV testing performed by [employer], [place], [place]. ??See reference laboratory ?? portion of the EMR for entire report. ?Clinical Information LMP: 03/08/23 Previous PAP test: 05/16/22, ASCUS HPV+ ? Material Received ?? ThinPrep-Cervical Copies To: ?? Celestine Jennings NP ?? [address] ?? [place] [address] ?? [phone] ?? Ben Andujar MD ?? [address] [place] [address] [facility] [address] ?? [place] [address] ?? [phone] ----- ------- Signed (signature on file) WILLY Neal (ASCP) 03/27/23 0759 ? ----- ------- ? END OF REPORT ? Generic External Data Provider LAB CYTOLOGY ORDE RABLES Final Result [facility] [address] [place] [address] [phone] * (ABNORMAL) Pap Smear (05/16/2022) Pap Epithelial cell abnormality(A ) Negative for intraephithelial lesion or malignancy, Other HPV Detected Historical Provider HEALTH MAINTENANCE Edited Result - Final from Last 3 Months or Most Recently Relevant to Health Maintenance Insurance [facility] [facility] H[employer] Care Teams Refinery Operator Light Ends Recovery Relationship Specialty Start Date End Date Freddy Michelle CNP [address] [place] [phone] PCP - General Family Medicine 08/12/24
--- OUTSIDE RECORDS SUMMARY | 2024-08-12 16:42 | XMS_ITS | Encounter Summary ---
Author Organization [employer] Address [address] [place] [address] 7t [place] [address] Care Team Providers Care Test Engine Operator Name Role Phone Fartun Crouch AIRPLANE TECHNICIAN Primary Care Provider [phone] Cristiane Christopher FUR SCRAPER Primary Care Provider [phone] Maryjane Borja AIRPLANE TECHNICIAN Primary Care Provider [phone] Freddy Michelle ENVIRONMENTAL PROJECT MANAGER Primary Care Provider [phone] Encounter Details Date Type Department Care Team (Late st Contact Info) Description 01/14/2023 Abstract [facility] MED[facility] [address] [place], [place] [phone] Fartun Crouch FNP [address] [place] [address] Social History Tobacco Use Types Packs/Day Years [...] this encounter Results * Biopsy cervix (07/10/2022) Historical Provider IN CLINIC/BEDSIDE ORDERAB LES Final Result * (ABNORMAL) Colposcopy (06/26/2022) [facility] Provider IN CLINIC/BEDSIDE ORDERAB LES Final Result * (ABNORMAL) Pap Smear (05/16/2022) Pap Epithelial cell abnormality(A ) Negative for intraephithelial lesion or malignancy, Other HPV Detected Result [facility] Provider HEALTH MAINTENANCE Edited Result - Final * Pap Smear (02/03/2020) Pap Negative for intraephithelial lesion or malignancy Negative for intraephithelial lesion or malignancy, Other HPV Undetected [facility] Provider HEALTH MAINTENANCE Final Result documented in this encounter Visit Diagnoses Not on filedocumented in this encounter Additional Health Concerns Assessment Noted Time PHQ-9 Depression Total Score: 1 07/05/19 23 3:10 PM EDT documented as of this encounter Care Teams Test Engine Operator Relationship Specialty Start Date End Date Fartun Crouch FNP [address] [place] [address] PCP - General Family Medicine 01/03/23 12/16/23 Cristiane Christopher NP [address] [place] [address] PCP - General Family Medicine 12/17/23 02/13/24 Maryjane Borja FNP [address] [place] [address] PCP - General Family Medicine 02/14/24 08/11/24 Freddy Michelle CNP [address] [place] [address] PCP - General Family Medicine 08/12/24 documented as of this encounter
[2024-08-18 13:19] LABS: HPV Genotype 16 Negative (Negative); HPV Genotype 18 Negative (Negative); HPV High Risk Negative (Negative)
== END 2024-08-12 13:22 | disposition home or self-care (01) ==
LOC: HO.LNP 13:21
PROVIDERS: PCP Nurse Practitioner Family; Visit Provider Advanced Practice Midwife
DX: Z01.419 Encounter for gynecological examination (general) (routine) without abnormal findings (principal); Z11.51 Encounter for screening for human papillomavirus (HPV); Z87.42 Personal history of other diseases of the female genital tract
CPT/HCPCS: 87626; 88175; 99396; 99459